=== PATIENT | male | born 1990 | race American Indian/Alaskan Native ===

== ENCOUNTER 2022-07-24 09:58 | Emergency (ER) | payer SELFPAY ==
[2022-07-24] MEDS ORDERED: THIAMINE 100 MG, FOLIC ACID 1 MG, MULTIPLE VITAMIN INJ, ADULT 10 ML in SODIUM CHLORIDE ... IV ONE (11:31)
--- NOTE | 2022-07-24 12:00 | Emergency Department Report ---
ED General Adult HPI - General Chief complaint: Alcohol Stated complaint: INTOXICATION PUI?: No Time Seen by Provider: 07/24/22 11:14 Source: EMS Mode of arrival: Stretcher Limitations: Altered Mental Status - History of Present Illness Initial comments: The following information was obtained from the nurse. 31-year-old male brought in by EMS with concerns of alcohol overuse. According to the nurse patient drink about 2 gallons and 2 liters of hard liquor over 5 days and he does this when patient feels depressed. At the time of my evaluation, patient is awake but only answer "no" to all my questions. ROS is limited. Severity scale (0 -10): 0 - Related Data Allergies Allergy/AdvReac Type Severity Reaction Status Date / Time No Known Allergies Allergy Verified 07/24/22 10:18 ED Review of Systems ROS: Stated complaint: INTOXICATION Other details as noted in HPI Comment: Unobtainable due to pts medical conditions ED Past Medical Hx - Past Medical History Hx Hypertension: Yes Hx Psychiatric Treatment: Yes (DEPRESSION) - Social History Smoking Status: Never Smoker Substance Use Type: None ED Physical Exam - General Limitations: Altered Mental Status General appearance: alert, in no apparent distress - Head Head exam: Present: atraumatic, normocephalic, normal inspection - Eye Eye exam: Present: normal appearance, PERRL, EOMI Pupils: Present: normal accommodation - ENT ENT exam: Present: normal exam, mucous membranes moist - Neck Neck exam: Present: normal inspection, full ROM - Respiratory Respiratory exam: Present: normal lung sounds bilaterally - Cardiovascular Cardiovascular Exam: Present: regular rate, normal rhythm, normal heart sounds - GI/Abdominal GI/Abdominal exam: Present: soft - Extremities Exam Extremities exam: Present: normal inspection, full ROM, normal capillary refill - Back Exam Back exam: Present: normal inspection, full ROM - Neurological Exam Neurological exam: Present: alert, altered - Skin Skin exam: Present: normal color ED Course Vital Signs 07/24/22 07/24/22 07/24/22 10:16 10:41 10:45 Temperature 97.8 F Pulse Rate 94 H 90 82 Respiratory 12 17 17 Rate Blood Pressure 127/80 Blood Pressure 120/60 [Left] O2 Sat by Pulse 98 97 98 Oximetry 07/24/22 07/24/22 07/24/22 10:55 11:01 11:15 Temperature Pulse Rate 90 85 101 H Respiratory 16 23 25 H Rate Blood Pressure 121/75 125/80 Blood Pressure 127/80 [Left] O2 Sat by Pulse 100 100 100 Oximetry 07/24/22 07/24/22 07/24/22 11:31 11:45 12:01 Temperature Pulse Rate 97 H 98 H 93 H Respiratory 14 18 15 Rate Blood Pressure 121/74 122/83 201/124 Blood Pressure [Left] O2 Sat by Pulse 100 98 99 Oximetry 07/24/22 07/24/22 07/24/22 12:15 12:31 12:45 Temperature Pulse Rate 88 93 H 91 H Respiratory 16 20 24 Rate Blood Pressure 120/74 121/71 121/71 Blood Pressure [Left] O2 Sat by Pulse 98 97 98 Oximetry 07/24/22 07/24/22 07/24/22 13:01 13:15 13:31 Temperature Pulse Rate 95 H 93 H 98 H Respiratory 22 20 21 Rate Blood Pressure 121/71 121/71 121/71 Blood Pressure [Left] O2 Sat by Pulse 93 94 95 Oximetry 07/24/22 07/24/22 07/24/22 13:45 14:01 14:15 Temperature Pulse Rate 88 106 H 98 H Respiratory 19 12 13 Rate Blood Pressure 121/71 121/71 121/71 Blood Pressure [Left] O2 Sat by Pulse 95 94 95 Oximetry 07/24/22 14:31 Temperature Pulse Rate 103 H Respiratory 12 Rate Blood Pressure 121/71 Blood Pressure [Left] O2 Sat by Pulse 98 Oximetry - Reevaluation(s) Reevaluation #1: 07/24/22 15:33 I have reevaluated the patient. Patient knows its 2021; not sure what month we are in but knows its fall. Patient admit drinking alcohol due to feeling sad. Denies homicidal/suicidal ideation. Patient denies any discomfort. 07/24/22 18:07 PATIENT AOX4, GCS15. HERE TO DELICATESSEN MANAGER THE PATIENT. PATIENT HAVE SIGNIFICANTLY SOBER UP. WILL D/C. EDUCATED ON ALCOHOL USAGE. ED Medical Decision Making - Lab Data Result diagrams: 07/24/22 12:09 Critical care attestation.: If time is entered above; I have spent that time in minutes in the direct care of this critically ill patient, excluding procedure time. ED Disposition Clinical Impression: Alcohol intoxication Disposition: 01 HOME / SELF CARE / HOMELESS Is pt being admited?: No Does the pt Need Aspirin: No Condition: Stable Additional Instructions: MAKE A FOLLOW UP APPOINTMENT WITH YOUR PRIMARY CARE PROVIDER FOR FURTHER OUTP ATIENT MANAGEMENT OF YOUR ALCOHOL ADDITION. Referrals: RICO FAY MD [Primary Care Provider] - 3-5 Days Time of Disposition: 18:08
[2022-07-24 12:39] LABS: Alanine Aminotransferase 186 units/L (7-56); Albumin 4.1 g/dL (3.9-5); BUN/Creatinine Ratio 14; Blood Urea Nitrogen 11 mg/dL (9-20); Hemolysis Index 11
[2022-07-24 12:51] LABS: Amphetamine Screen,Urine Negative; Benzodiazepines Screen,Urine Negative; Cannabinoid Screen,Urine Negative; Cocaine Screen,Urine Negative; Methadone Screen,Urine Negative; Opiate Screen,Urine Negative
--- NOTE | 2022-07-24 13:14 | Cat Scan Report ---
CT HEAD WITHOUT CONTRAST INDICATION / CLINICAL INFORMATION: confusion. TECHNIQUE: All CT scans at this location are performed using CT dose reduction for ALARA by means of automated exposure control. COMPARISON: None available. FINDINGS: BRAIN PARENCHYMA: No acute intracranial hemorrhage. No evidence of recent infarct. No mass effect or midline shift. VENTRICULAR SYSTEM/EXTRA-AXIAL SPACES: Ventricles are normal for age. No extra-axial fluid collection . ORBITS: Normal as visualized. SKELETAL SYSTEM/SOFT TISSUES: Normal bones and soft tissues. PARANASAL SINUSES/MASTOID AIR CELLS: Mucus retention cyst in the right maxillary sinus. Other paranas al sinuses are essentially clear. ADDITIONAL FINDINGS: None. IMPRESSION: 1. No acute intracranial abnormality. Signer Name: Brad Wynn MD Signed: 07/24/2022 1:10 PM Workstation Name: [id number]
[2022-07-24 13:34] LABS: Bacteria,Urine 1+ /HPF (Negative); RBC,Urine < 1.0 /HPF (0.0-6.0); WBC,Urine < 1.0 /HPF (0.0-6.0)
[2022-07-24 14:14] LABS: Color,Urine Yellow (Yellow)
[2022-07-24] MEDS ORDERED: SODIUM CHLORIDE 0.45% 1000 ML 1,000 ML IV SCH (16:00)
[2022-07-24 18:22] VITALS: BP 153/97
== END 2022-07-24 18:46 | disposition home or self-care (01) ==
LOC: ED 09:58
DX: F10.129 Alcohol abuse with intoxication, unspecified (principal); I10 Essential (primary) hypertension; F32.A Depression, unspecified; Z79.899 Other long term (current) drug therapy
CPT/HCPCS: 36415; 70450; 80053; 80307; 81001; 83735; 96365; 96366; 99285; J3411; J3490; J7030; 80320; G0480